=== PATIENT | female | born 1945 | race Caucasian/White ===

== ENCOUNTER 2016-08-13 08:08 | Outpatient (CLI) | payer MEDICARE, OTHER ==
[2016-08-13 11:25] LABS: ALBUMIN/GLOBULIN RATIO 2.2 (1.0-2.2); BILIRUBIN,TOTAL 0.6 mg/dL (0.2-1.0); BUN - BLOOD UREA NITROGEN 19 mg/dL (6-20); CALCIUM 9.5 mg/dL (8.5-10.3); CARBON DIOXIDE - CO2 27 mmol/L (21-32); CHLORIDE 94 mmol/L (101-111); CHOL/HDL RATIO 2.6 (<4.4); CHOLESTEROL 214 mg/dL; CREATININE 0.7 mg/dL (0.4-1.0); GFR - MDRD 83 (>89); GLUCOSE 87 mg/dL (70-100); HDL CHOLESTEROL 81 mg/dL; LDL/HDL RATIO 1.5 (<4.4); POTASSIUM 3.6 mmol/L (3.5-5.0); SODIUM 128 mmol/L (135-145); TOTAL PROTEIN 6.1 g/dL (6.7-8.2); TRIGLYCERIDES 55 mg/dL; VLDL CHOLESTEROL 11 mg/dL
[2016-08-17 11:03] LABS: 18 KD (IGG) BAND NON-REACTIVE (()); 23 KD (IGG) BAND REACTIVE (()); 28 KD (IGG) BAND NON-REACTIVE (()); 30 KD (IGG) BAND REACTIVE (()); 39 KD (IGG) BAND NON-REACTIVE (()); 41 KD (IGG) BAND NON-REACTIVE (()); 41 KD (IGM) BLOT NON-REACTIVE (()); 45 KD (IGG) BAND NON-REACTIVE (()); 58 KD (IGG) BAND NON-REACTIVE (()); 66 KD (IGG) BAND NON-REACTIVE (()); 93 KD (IGG) BAND NON-REACTIVE (())
[2016-08-19 16:26] LABS: GLIADIN (DEAMIDATED) AB IGA 6 U (<20); GLIADIN (DEAMIDATED) AB IGG 2 U (<20); IMMUNOGLOBULIN A 172 mg/dL (81-463); TISSUE TRANSGLUTAMINASE IGA <1 U/mL (()); TISSUE TRANSGLUTAMINASE IGG <1 U/mL (())
== END 2016-08-13 08:09 | disposition home or self-care (01) ==
LOC: LAB.F 08:08
PROVIDERS: ATTEND Family Medicine
DX: Z00.00 Encounter for general adult medical examination without abnormal findings (principal); E03.9 Hypothyroidism, unspecified; I10 Essential (primary) hypertension; R21 Rash and other nonspecific skin eruption
CPT/HCPCS: 36415; 80053; 80061; 82784; 83516; 84443; 86256; 86617

== ENCOUNTER 2017-03-09 10:59 | Outpatient (CLI) | payer MEDICARE, OTHER ==
[2017-03-09 17:32] LABS: BASOPHILS % (AUTO) 0.2 %; EOSINOPHILS % (AUTO) 0.5 %; HGB - HEMOGLOBIN 13.8 g/dL (12.0-16.0); LYMPHOCYTES # (AUTO) 0.7 10^3/uL (1.5-3.5); LYMPHOCYTES % (AUTO) 9.2 %; MEAN CORPUSCULAR HEMOGLOBIN 32.5 pg (27.0-31.0); MEAN CORPUSCULAR HGB CONC 34.3 g/dL (32.0-36.0); MEAN CORPUSCULAR VOLUME 94.5 fL (81.0-99.0); MEAN PLATELET VOLUME 7.9 fL (7.9-10.8); MONOCYTES # (AUTO) 0.9 10^3/uL (0.0-1.0); MONOCYTES % (AUTO) 12.1 %; PLT - PLATELET COUNT 295 10^3/uL (130-450); RED BLOOD COUNT 4.25 10^6/uL (4.20-5.40); RED CELL DISTRIBUTION WIDTH 13.3 % (12.0-15.0); WHITE BLOOD COUNT 7.7 x10^3/uL (4.8-10.8)
[2017-03-09 17:39] LABS: INR 0.9 (0.8-1.2); PT - PROTHROMBIN TIME 9.7 secs (9.9-12.6)
[2017-03-09 17:43] LABS: RHEUMATOID FACTOR NEGATIVE (Negative)
== END 2017-03-09 11:00 | disposition home or self-care (01) ==
LOC: LAB.F 10:59
PROVIDERS: ATTEND Naturopath
DX: I10 Essential (primary) hypertension (principal); R21 Rash and other nonspecific skin eruption; M20.091 Other deformity of right finger(s)
CPT/HCPCS: 36415; 85025; 85610; 85730; 86200; 86430

== ENCOUNTER 2017-06-01 11:02 | Outpatient (CLI) | payer MEDICARE, OTHER ==
[2017-06-01 17:58] LABS: CREATININE 0.7 mg/dL (0.4-1.0)
== END 2017-06-01 11:03 | disposition home or self-care (01) ==
LOC: LAB.F 11:02
PROVIDERS: ATTEND Naturopath
DX: E87.1 Hypo-osmolality and hyponatremia (principal)
CPT/HCPCS: 36415; 80048

== ENCOUNTER 2017-07-07 13:49 | Outpatient (CLI) | payer MEDICARE, OTHER | END 2017-07-07 13:50 | disposition home or self-care (01) | LOC: RT 13:49 | PROVIDERS: ATTEND Orthopaedic Surgery | DX: Z01.812 Encounter for preprocedural laboratory examination (principal); M87.9 Osteonecrosis, unspecified; Z01.818 Encounter for other preprocedural examination ==

== ENCOUNTER 2017-07-07 13:57 | Outpatient (CLI) | payer MEDICARE, OTHER ==
[2017-07-07 14:37] LABS: BASOPHILS % (AUTO) 0.2 %; EOSINOPHILS % (AUTO) 0.2 %; HGB - HEMOGLOBIN 13.7 g/dL (12.0-16.0); LYMPHOCYTES # (AUTO) 0.7 10^3/uL (1.5-3.5); MEAN CORPUSCULAR HEMOGLOBIN 32.7 pg (27.0-31.0); MEAN CORPUSCULAR HGB CONC 33.5 g/dL (32.0-36.0); MEAN CORPUSCULAR VOLUME 97.7 fL (81.0-99.0); MEAN PLATELET VOLUME 8.6 fL (7.9-10.8); MONOCYTES # (AUTO) 0.8 10^3/uL (0.0-1.0); MONOCYTES % (AUTO) 7.1 %; NEUTROPHILS # (AUTO) 10.2 10^3/uL (1.5-6.6); NEUTROPHILS % (AUTO) 86.5 %; PLT - PLATELET COUNT 236 10^3/uL (130-450); RED BLOOD COUNT 4.19 10^6/uL (4.20-5.40); RED CELL DISTRIBUTION WIDTH 14.7 % (12.0-15.0); WHITE BLOOD COUNT 11.8 x10^3/uL (4.8-10.8)
[2017-07-07 14:56] LABS: CALCIUM 9.3 mg/dL (8.5-10.3); CREATININE 0.7 mg/dL (0.4-1.0)
== END 2017-07-07 13:58 | disposition home or self-care (01) ==
LOC: LAB 13:57
PROVIDERS: ATTEND Orthopaedic Surgery
DX: Z01.818 Encounter for other preprocedural examination (principal); M87.9 Osteonecrosis, unspecified
CPT/HCPCS: 36415; 80048; 85025; 93005

== ENCOUNTER 2017-09-08 14:43 | Outpatient (CLI) | payer MEDICARE, OTHER ==
[2017-09-08 17:46] LABS: CREATININE 0.8 mg/dL (0.4-1.0)
[2017-09-08 17:48] LABS: CALCIUM 9.1 mg/dL (8.5-10.3)
== END 2017-09-08 14:44 | disposition home or self-care (01) ==
LOC: LAB.F 14:43
PROVIDERS: ATTEND Internal Medicine Cardiovascular Disease
DX: I47.1 Supraventricular tachycardia (principal)
CPT/HCPCS: 36415; 80048

== ENCOUNTER 2018-07-15 11:21 | Outpatient (CLI) | payer MEDICARE, OTHER ==
[2018-07-15 17:27] LABS: CALCIUM 9.3 mg/dL (8.5-10.3); CREATININE 0.9 mg/dL (0.4-1.0)
== END 2018-07-15 11:22 | disposition home or self-care (01) ==
LOC: LAB.F 11:21
PROVIDERS: ATTEND Hospitalist
DX: I10 Essential (primary) hypertension (principal)
CPT/HCPCS: 36415; 80048

== ENCOUNTER 2019-03-08 15:00 | Outpatient (CLI) | payer MEDICARE, OTHER | END 2019-03-08 23:59 | disposition EMS.NT | LOC: EMS 15:00 | PROVIDERS: ATTEND Surgery | DX: M54.5 Low back pain (principal); V48.5XXA Car driver injured in noncollision transport accident in traffic accident, initial encounter; Y92.414 Local residential or business street as the place of occurrence of the external cause ==

== ENCOUNTER 2020-03-01 12:04 | Outpatient (CLI) | payer MEDICARE, OTHER ==
[2020-03-01 14:54] LABS: BASOPHILS % (AUTO) 0.4 %; EOSINOPHILS % (AUTO) 0.6 %; HGB - HEMOGLOBIN 12.9 g/dL (12.0-16.0); LYMPHOCYTES # (AUTO) 0.8 10^3/uL (1.5-3.5); LYMPHOCYTES % (AUTO) 11.6 %; MEAN CORPUSCULAR HEMOGLOBIN 32.8 pg (27.0-31.0); MEAN CORPUSCULAR HGB CONC 31.2 g/dL (32.0-36.0); MEAN CORPUSCULAR VOLUME 105.1 fL (81.0-99.0); MEAN PLATELET VOLUME 10.6 fL (7.9-10.8); MONOCYTES # (AUTO) 0.8 10^3/uL (0.0-1.0); MONOCYTES % (AUTO) 11.9 %; NEUTROPHILS # (AUTO) 5.1 10^3/uL (1.5-6.6); NEUTROPHILS % (AUTO) 74.8 %; PLT - PLATELET COUNT 244 10^3/uL (130-450); RED BLOOD COUNT 3.93 10^6/uL (4.20-5.40); RED CELL DISTRIBUTION WIDTH 14.9 % (12.0-15.0); WHITE BLOOD COUNT 6.8 x10^3/uL (4.8-10.8)
[2020-03-01 15:54] LABS: ALBUMIN 3.9 g/dL (3.2-5.5); ALBUMIN/GLOBULIN RATIO 1.4 (1.0-2.2); ALKALINE PHOSPHATASE 85 IU/L (42-121); ALT ALANINE AMINOTRANSFERASE 18 IU/L (10-60); AST ASPARTATE AMINOTRANSFERASE 22 IU/L (10-42); BILIRUBIN,TOTAL 0.6 mg/dL (0.2-1.0); BUN - BLOOD UREA NITROGEN 28 mg/dL (6-20); CALCIUM 9.8 mg/dL (8.5-10.3); CARBON DIOXIDE - CO2 27 mmol/L (21-32); CHLORIDE 103 mmol/L (101-111); CREATININE 0.9 mg/dL (0.4-1.0); GLUCOSE 82 mg/dL (70-100); SODIUM 140 mmol/L (135-145); TOTAL PROTEIN 6.7 g/dL (6.7-8.2)
[2020-03-01 15:58] LABS: CRP - C-REACTIVE PROTEIN < 1.0 mg/dL (0-1.0)
--- OUTSIDE RECORDS SUMMARY | 2020-03-06 01:37 | EXTERNAL MEDICAL SUMMARY RPT | Continuity of Care Document ---
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
== END 2020-03-01 12:05 | disposition home or self-care (01) ==
LOC: LAB.S 12:04
PROVIDERS: ATTEND Internal Medicine Rheumatology
DX: Z79.899 Other long term (current) drug therapy (principal)
CPT/HCPCS: 36415; 80053; 85025; 86140

== ENCOUNTER 2020-07-16 10:26 | Outpatient (CLI) | payer MEDICARE, OTHER ==
[2020-07-16 15:22] LABS: ALBUMIN 3.8 g/dL (3.2-5.5); ALBUMIN/GLOBULIN RATIO 1.5 (1.0-2.2); ALKALINE PHOSPHATASE 73 IU/L (42-121); ALT ALANINE AMINOTRANSFERASE 18 IU/L (10-60); AST ASPARTATE AMINOTRANSFERASE 20 IU/L (10-42); BILIRUBIN,TOTAL 0.9 mg/dL (0.2-1.0); BUN - BLOOD UREA NITROGEN 33 mg/dL (6-20); CALCIUM 9.5 mg/dL (8.5-10.3); CARBON DIOXIDE - CO2 27 mmol/L (21-32); CHLORIDE 101 mmol/L (101-111); CHOL/HDL RATIO 3.5 (<4.4); CHOLESTEROL 236 mg/dL; CREATININE 1.1 mg/dL (0.4-1.0); GFR - MDRD 49 (>89); GLUCOSE 86 mg/dL (70-100); HDL CHOLESTEROL 67 mg/dL; LDL CHOLESTEROL,CALCULATED 154 mg/dL; LDL/HDL RATIO 2.3 (<4.4); POTASSIUM 4.2 mmol/L (3.5-5.0); SODIUM 139 mmol/L (135-145); TOTAL PROTEIN 6.3 g/dL (6.7-8.2); TRIGLYCERIDES 76 mg/dL; VLDL CHOLESTEROL 15 mg/dL
== END 2020-07-16 10:27 | disposition home or self-care (01) ==
LOC: LAB.S 10:26
PROVIDERS: ATTEND Internal Medicine Cardiovascular Disease
DX: I35.1 Nonrheumatic aortic (valve) insufficiency (principal); I10 Essential (primary) hypertension; R00.0 Tachycardia, unspecified
CPT/HCPCS: 36415; 80053; 80061; 83721; 84443

== ENCOUNTER 2020-12-02 09:56 | Outpatient (CLI) | payer MEDICARE, OTHER ==
[2020-12-02 15:36] LABS: CHOL/HDL RATIO 3.1 (<4.4); CHOLESTEROL 238 mg/dL; HDL CHOLESTEROL 77 mg/dL; LDL CHOLESTEROL,CALCULATED 147 mg/dL; LDL/HDL RATIO 1.9 (<4.4); TRIGLYCERIDES 69 mg/dL; VLDL CHOLESTEROL 14 mg/dL
== END 2020-12-02 09:57 | disposition home or self-care (01) ==
LOC: LAB.S 09:56
PROVIDERS: ATTEND Internal Medicine Cardiovascular Disease
DX: I10 Essential (primary) hypertension (principal)
CPT/HCPCS: 36415; 80061; 83721

== ENCOUNTER 2021-05-30 10:23 | Outpatient (CLI) | payer MEDICARE, OTHER ==
[2021-05-30 15:31] LABS: CHOL/HDL RATIO 2.3 (<4.4); CHOLESTEROL 168 mg/dL; HDL CHOLESTEROL 74 mg/dL; LDL CHOLESTEROL,CALCULATED 84 mg/dL; LDL/HDL RATIO 1.1 (<4.4); TRIGLYCERIDES 52 mg/dL; VLDL CHOLESTEROL 10 mg/dL
== END 2021-05-30 10:24 | disposition home or self-care (01) ==
LOC: LAB.S 10:23
PROVIDERS: ATTEND Internal Medicine Cardiovascular Disease
DX: E78.5 Hyperlipidemia, unspecified (principal)
CPT/HCPCS: 36415; 80061; 83721

== ENCOUNTER 2021-06-19 08:00 | Outpatient (CLI) | payer MEDICARE, OTHER ==
[2021-06-19 20:44] LABS: BASOPHILS % (AUTO) 0.3 %; EOSINOPHILS # (AUTO) 0.1 10^3/uL (0.0-0.7); EOSINOPHILS % (AUTO) 0.6 %; HCT - HEMATOCRIT 43.5 % (37.0-47.0); HGB - HEMOGLOBIN 14.1 g/dL (12.0-16.0); LYMPHOCYTES # (AUTO) 0.8 10^3/uL (1.5-3.5); LYMPHOCYTES % (AUTO) 8.1 %; MEAN CORPUSCULAR HEMOGLOBIN 34.8 pg (27.0-31.0); MEAN CORPUSCULAR HGB CONC 32.4 g/dL (32.0-36.0); MEAN CORPUSCULAR VOLUME 107.4 fL (81.0-99.0); MEAN PLATELET VOLUME 11.2 fL (7.9-10.8); MONOCYTES # (AUTO) 0.8 10^3/uL (0.0-1.0); MONOCYTES % (AUTO) 8.2 %; NEUTROPHILS # (AUTO) 7.9 10^3/uL (1.5-6.6); NEUTROPHILS % (AUTO) 82.2 %; PLT - PLATELET COUNT 285 10^3/uL (130-450); RED BLOOD COUNT 4.05 10^6/uL (4.20-5.40); RED CELL DISTRIBUTION WIDTH 14.6 % (12.0-15.0); WHITE BLOOD COUNT 9.6 x10^3/uL (4.8-10.8)
[2021-06-19 20:56] LABS: ALBUMIN/GLOBULIN RATIO 1.5 (1.0-2.2); ALKALINE PHOSPHATASE 44 IU/L (42-121); ALT ALANINE AMINOTRANSFERASE 21 IU/L (10-60); AST ASPARTATE AMINOTRANSFERASE 28 IU/L (10-42); BILIRUBIN,TOTAL 0.9 mg/dL (0.2-1.0); BUN - BLOOD UREA NITROGEN 33 mg/dL (6-20); CALCIUM 9.8 mg/dL (8.5-10.3); CARBON DIOXIDE - CO2 30 mmol/L (21-32); CHLORIDE 100 mmol/L (101-111); GFR - MDRD 54 (>89); GLUCOSE 121 mg/dL (70-100); POTASSIUM 3.9 mmol/L (3.5-5.0); SODIUM 139 mmol/L (135-145); TOTAL PROTEIN 6.6 g/dL (6.7-8.2)
[2021-06-19 21:05] LABS: CRP - C-REACTIVE PROTEIN < 1.0 mg/dL (0-1.0)
== END 2021-06-19 08:01 | disposition home or self-care (01) ==
LOC: LAB.S 08:00
PROVIDERS: ATTEND Internal Medicine Rheumatology
DX: M13.80 Other specified arthritis, unspecified site (principal); Z79.899 Other long term (current) drug therapy
CPT/HCPCS: 36415; 80053; 85025; 86140

== ENCOUNTER 2021-12-02 14:53 | Outpatient (CLI) | payer MEDICARE, OTHER ==
[2021-12-02 15:08] LABS: BASOPHILS % (AUTO) 0.4 %; EOSINOPHILS # (AUTO) 0.1 10^3/uL (0.0-0.7); EOSINOPHILS % (AUTO) 0.5 %; HCT - HEMATOCRIT 43.2 % (37.0-47.0); HGB - HEMOGLOBIN 14.2 g/dL (12.0-16.0); LYMPHOCYTES % (AUTO) 9.3 %; MEAN CORPUSCULAR HGB CONC 32.9 g/dL (32.0-36.0); MEAN CORPUSCULAR VOLUME 106.4 fL (81.0-99.0); MEAN PLATELET VOLUME 9.9 fL (7.9-10.8); MONOCYTES % (AUTO) 9.8 %; NEUTROPHILS # (AUTO) 8.2 10^3/uL (1.5-6.6); NEUTROPHILS % (AUTO) 79.3 %; PLT - PLATELET COUNT 258 10^3/uL (130-450); RED BLOOD COUNT 4.06 10^6/uL (4.20-5.40); RED CELL DISTRIBUTION WIDTH 14.5 % (12.0-15.0); WHITE BLOOD COUNT 10.3 x10^3/uL (4.8-10.8)
[2021-12-02 15:25] LABS: ALBUMIN 3.9 g/dL (3.2-5.5); ALBUMIN/GLOBULIN RATIO 1.4 (1.0-2.2); CALCIUM 9.6 mg/dL (8.5-10.3); CREATININE 1.1 mg/dL (0.4-1.0); POTASSIUM 4.2 mmol/L (3.5-5.0); TOTAL PROTEIN 6.7 g/dL (6.7-8.2)
== END 2021-12-02 14:54 | disposition home or self-care (01) ==
LOC: LAB 14:53
PROVIDERS: ATTEND Internal Medicine Rheumatology
DX: M13.80 Other specified arthritis, unspecified site (principal); Z79.899 Other long term (current) drug therapy
CPT/HCPCS: 36415; 80053; 85025

== ENCOUNTER 2021-12-15 12:48 | Outpatient (CLI) | payer MEDICARE, OTHER ==
[2021-12-15 13:07] LABS: HCT - HEMATOCRIT 43.6 % (37.0-47.0); HGB - HEMOGLOBIN 14.1 g/dL (12.0-16.0); MEAN CORPUSCULAR HEMOGLOBIN 34.5 pg (27.0-31.0); MEAN CORPUSCULAR HGB CONC 32.3 g/dL (32.0-36.0); MEAN CORPUSCULAR VOLUME 106.6 fL (81.0-99.0); MEAN PLATELET VOLUME 10.1 fL (7.9-10.8); RED BLOOD COUNT 4.09 10^6/uL (4.20-5.40); RED CELL DISTRIBUTION WIDTH 14.5 % (12.0-15.0); WHITE BLOOD COUNT 9.2 x10^3/uL (4.8-10.8)
[2021-12-15 13:26] LABS: CREATININE,URINE 31.8 mg/dL; MICROALBUM/CREATININE RATIO,UR 9.4 ug/mg (<30.0); MICROALBUMIN,URINE 0.3 mg/dL (0-300.0)
[2021-12-15 13:31] LABS: ALBUMIN 4.1 g/dL (3.2-5.5); ALBUMIN/GLOBULIN RATIO 1.5 (1.0-2.2); ALKALINE PHOSPHATASE 44 IU/L (42-121); ALT ALANINE AMINOTRANSFERASE 19 IU/L (10-60); AST ASPARTATE AMINOTRANSFERASE 23 IU/L (10-42); BUN - BLOOD UREA NITROGEN 27 mg/dL (6-20); CALCIUM 10.1 mg/dL (8.5-10.3); CARBON DIOXIDE - CO2 28 mmol/L (21-32); CHLORIDE 102 mmol/L (101-111); CHOL/HDL RATIO 2.4 (<4.4); CHOLESTEROL 187 mg/dL; CREATININE 1.1 mg/dL (0.4-1.0); GFR - MDRD 49 (>89); GLUCOSE 104 mg/dL (70-100); HDL CHOLESTEROL 78 mg/dL; LDL CHOLESTEROL,CALCULATED 90 mg/dL; LDL/HDL RATIO 1.2 (<4.4); SODIUM 141 mmol/L (135-145); TOTAL PROTEIN 6.8 g/dL (6.7-8.2); TRIGLYCERIDES 93 mg/dL; VLDL CHOLESTEROL 19 mg/dL
[2021-12-15 13:38] LABS: FREE T3 2.87 pg/mL (2.5-3.9)
[2021-12-15 13:40] LABS: THYROID STIMULATING HORMONE 2.75 uIU/mL (0.34-5.60)
[2021-12-15 13:42] LABS: FREE T4 (FREE THYROXINE) 0.77 ng/dL (0.58-1.64)
== END 2021-12-15 12:49 | disposition home or self-care (01) ==
LOC: LAB 12:48
DX: I10 Essential (primary) hypertension (principal); E03.9 Hypothyroidism, unspecified; I77.810 Thoracic aortic ectasia
CPT/HCPCS: 36415; 80053; 80061; 82043; 82570; 83721; 84439; 84443; 84481; 85027

== ENCOUNTER 2022-05-21 16:21 | Outpatient (CLI) | payer MEDICARE, OTHER ==
[2022-05-21 16:47] LABS: BASOPHILS % (AUTO) 0.4 %; EOSINOPHILS # (AUTO) 0.1 10^3/uL (0.0-0.7); EOSINOPHILS % (AUTO) 0.5 %; HCT - HEMATOCRIT 42.9 % (37.0-47.0); HGB - HEMOGLOBIN 13.6 g/dL (12.0-16.0); LYMPHOCYTES # (AUTO) 0.9 10^3/uL (1.5-3.5); LYMPHOCYTES % (AUTO) 9.6 %; MEAN CORPUSCULAR HEMOGLOBIN 32.4 pg (27.0-31.0); MEAN CORPUSCULAR HGB CONC 31.7 g/dL (32.0-36.0); MEAN CORPUSCULAR VOLUME 102.1 fL (81.0-99.0); MEAN PLATELET VOLUME 10.2 fL (7.9-10.8); MONOCYTES # (AUTO) 0.8 10^3/uL (0.0-1.0); MONOCYTES % (AUTO) 8.6 %; NEUTROPHILS # (AUTO) 7.5 10^3/uL (1.5-6.6); NEUTROPHILS % (AUTO) 80.4 %; PLT - PLATELET COUNT 232 10^3/uL (130-450); RED CELL DISTRIBUTION WIDTH 16.6 % (12.0-15.0); WHITE BLOOD COUNT 9.4 x10^3/uL (4.8-10.8)
[2022-05-21 16:59] LABS: ALBUMIN 3.9 g/dL (3.2-5.5); ALBUMIN/GLOBULIN RATIO 1.4 (1.0-2.2); BILIRUBIN,TOTAL 0.9 mg/dL (0.2-1.0); CALCIUM 9.3 mg/dL (8.5-10.3); CREATININE 0.8 mg/dL (0.4-1.0); TOTAL PROTEIN 6.6 g/dL (6.7-8.2)
== END 2022-05-21 16:22 | disposition home or self-care (01) ==
LOC: LAB 16:21
PROVIDERS: ATTEND Internal Medicine Rheumatology
DX: M13.80 Other specified arthritis, unspecified site (principal); Z79.899 Other long term (current) drug therapy
CPT/HCPCS: 36415; 80053; 85025

== ENCOUNTER 2022-11-24 11:52 | Outpatient (CLI) | payer MEDICARE, OTHER ==
[2022-11-24 12:11] LABS: BASOPHILS % (AUTO) 0.5 %; EOSINOPHILS # (AUTO) 0.1 10^3/uL (0.0-0.7); EOSINOPHILS % (AUTO) 0.8 %; HCT - HEMATOCRIT 44.9 % (37.0-47.0); HGB - HEMOGLOBIN 14.3 g/dL (12.0-16.0); LYMPHOCYTES % (AUTO) 13.2 %; MEAN CORPUSCULAR HEMOGLOBIN 33.3 pg (27.0-31.0); MEAN CORPUSCULAR HGB CONC 31.8 g/dL (32.0-36.0); MEAN CORPUSCULAR VOLUME 104.7 fL (81.0-99.0); MEAN PLATELET VOLUME 10.4 fL (7.9-10.8); MONOCYTES # (AUTO) 0.7 10^3/uL (0.0-1.0); MONOCYTES % (AUTO) 9.2 %; NEUTROPHILS # (AUTO) 5.8 10^3/uL (1.5-6.6); NEUTROPHILS % (AUTO) 75.8 %; PLT - PLATELET COUNT 241 10^3/uL (130-450); RED BLOOD COUNT 4.29 10^6/uL (4.20-5.40); RED CELL DISTRIBUTION WIDTH 15.2 % (12.0-15.0); WHITE BLOOD COUNT 7.6 x10^3/uL (4.8-10.8)
[2022-11-24 12:19] LABS: ALBUMIN 4.3 g/dL (3.2-5.5); CHOL/HDL RATIO 2.3 (<4.4); CHOLESTEROL 165 mg/dL; HDL CHOLESTEROL 72 mg/dL; LDL CHOLESTEROL,CALCULATED 79 mg/dL; LDL/HDL RATIO 1.1 (<4.4); TRIGLYCERIDES 71 mg/dL (48-352); VLDL CHOLESTEROL 14 mg/dL
[2022-11-24 12:56] LABS: ALBUMIN/GLOBULIN RATIO 1.8 (1.0-2.2); ALKALINE PHOSPHATASE 57 IU/L (42-121); ALT ALANINE AMINOTRANSFERASE 17 IU/L (10-60); AST ASPARTATE AMINOTRANSFERASE 25 IU/L (10-42); BILIRUBIN,TOTAL 0.7 mg/dL (0.2-1.0); BUN - BLOOD UREA NITROGEN 19 mg/dL (6-20); CALCIUM 9.7 mg/dL (8.5-10.3); CARBON DIOXIDE - CO2 27 mmol/L (21-32); CHLORIDE 106 mmol/L (101-111); CREATININE 0.9 mg/dL (0.6-1.3); GFR - MDRD 61 (>89); GLUCOSE 89 mg/dL (74-104); POTASSIUM 4.7 mmol/L (3.5-4.5); SODIUM 138 mmol/L (135-145); TOTAL PROTEIN 6.7 g/dL (6.4-8.9)
== END 2022-11-24 11:53 | disposition home or self-care (01) ==
LOC: LAB 11:52
PROVIDERS: ATTEND Family Medicine
DX: I77.810 Thoracic aortic ectasia (principal); E03.9 Hypothyroidism, unspecified; I10 Essential (primary) hypertension
CPT/HCPCS: 36415; 80053; 80061; 83721; 84439; 84443; 84481; 85025

== ENCOUNTER 2023-06-17 12:55 | Outpatient (CLI) | payer MEDICARE, OTHER ==
[2023-06-17 13:21] LABS: ALBUMIN 4.5 g/dL (3.2-5.5); BILIRUBIN,TOTAL 0.7 mg/dL (0.2-1.0); CALCIUM 10.7 mg/dL (8.5-10.3); CREATININE 1.1 mg/dL (0.6-1.3); POTASSIUM 4.5 mmol/L (3.5-4.5); TOTAL PROTEIN 6.8 g/dL (6.4-8.9)
[2023-06-17 13:22] LABS: BASOPHILS % (AUTO) 0.3 %; EOSINOPHILS # (AUTO) 0.1 10^3/uL (0.0-0.7); EOSINOPHILS % (AUTO) 0.7 %; HCT - HEMATOCRIT 45.6 % (37.0-47.0); HGB - HEMOGLOBIN 13.8 g/dL (12.0-16.0); LYMPHOCYTES % (AUTO) 10.1 %; MEAN CORPUSCULAR HEMOGLOBIN 31.3 pg (27.0-31.0); MEAN CORPUSCULAR HGB CONC 30.3 g/dL (32.0-36.0); MEAN CORPUSCULAR VOLUME 103.4 fL (81.0-99.0); MEAN PLATELET VOLUME 10.5 fL (7.9-10.8); MONOCYTES # (AUTO) 0.8 10^3/uL (0.0-1.0); MONOCYTES % (AUTO) 7.7 %; NEUTROPHILS % (AUTO) 80.6 %; PLT - PLATELET COUNT 275 10^3/uL (130-450); RED BLOOD COUNT 4.41 10^6/uL (4.20-5.40); RED CELL DISTRIBUTION WIDTH 14.7 % (12.0-15.0)
== END 2023-06-17 12:56 | disposition home or self-care (01) ==
LOC: LAB 12:55
PROVIDERS: ATTEND Internal Medicine Rheumatology
DX: M13.80 Other specified arthritis, unspecified site (principal); Z79.899 Other long term (current) drug therapy
CPT/HCPCS: 36415; 80053; 85025

== ENCOUNTER 2023-07-27 16:00 | Outpatient (CLI) | payer MEDICARE, OTHER | END 2023-07-27 23:59 | disposition critical access hospital (66) | LOC: EMS 16:00 | DX: M25.511 Pain in right shoulder (principal); W01.0XXA Fall on same level from slipping, tripping and stumbling without subsequent striking against object, initial encounter; Y92.009 Unspecified place in unspecified non-institutional (private) residence as the place of occurrence of the external cause | CPT/HCPCS: A0425; A0427 ==

== ENCOUNTER 2023-07-27 16:32 | Emergency (ER) | payer MEDICARE, OTHER ==
--- NOTE | 2023-07-27 17:30 | ED Physician Documentation ---
PD HPI UPPER EXT INJURY - Stated complaint Stated Complaint: FALL - Chief complaint Chief Complaint: Trauma Ext - History obtained from History obtained from: Patient - History of Present Illness Location: Right, Shoulder, Elbow Type of injury: Fall (accidental trip and fall. 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 No: Numbness Contributing factors: No: Anticoagulated Similar symptoms before: Has not had sx before Review of Systems Cardiac: denies: Chest pain / pressure, Palpitations Respiratory: denies: Dyspnea, Cough GI: denies: Abdominal Pain Neurologic: denies: Focal weakness, Numbness, Syncope, Headache, Head injury PD PAST MEDICAL HISTORY - Past Medical History Cardiovascular: Hypertension, Other (denies history of atrial fib nor ACS) Endocrine/Autoimmune: HyPOthyroidism Musculoskeletal: Gout - Past Surgical History Past Surgical History: No - Allergies Allergies/Adverse Reactions: Allergies Allergy/AdvReac Type Severity Reaction Status Date / Time No Known Drug Allergies Allergy Verified 07/27/23 17:01 - Social History Does the pt smoke?: No Smoking Status: Never smoker Does the pt drink ETOH?: No Does the pt have substance abuse?: No PD ED PE NORMAL - Vitals Vital signs reviewed: Yes - General General: Alert and oriented X 3, Well developed/nourished, Other (supine on cart with bandage sling by EMS. Pain in right shoulder with any slight ROM>) - Cardiac Cardiac: No murmur. No: RRR (initially is regularly irregular with EMS rhythm strips showing atrial bigeminy. ) - Respiratory Respiratory: No respiratory distress, Clear bilaterally, Other (no chest wall tenderness. ) - Abdomen Abdomen: Soft, Non tender - Derm Derm: Normal color, Warm and dry - Extremities Extremities: No edema, Other (pain and tender right shoulder with sulcus sign c/w likely dislocation. Pain at proximal huerus too. Elbow tnder without effusion. Dorsl wrist with mild tenderness ) - Neuro Neuro: Alert and oriented X 3, No motor deficit, No sensory deficit Eye Opening: Spontaneous Motor: Obeys Commands Verbal: Oriented GCS Score: 15 Results - Vitals Vitals: Vital Signs - 24 hr 07/27/23 07/27/23 07/27/23 16:53 17:14 19:30 Temperature 36.6 C Heart Rate 66 66 153 H Respiratory 20 23 22 Rate Blood Pressure 196/77 H 191/79 H 189/97 H O2 Saturation 88 L 97 93 If not protocol 3 : Oxygen Flow, liters/minute 07/27/23 07/27/23 07/27/23 20:00 20:59 22:00 Temperature Heart Rate 160 H 70 61 Respiratory 22 20 18 Rate Blood Pressure 136/86 H 184/92 H 159/81 H O2 Saturation 92 95 94 If not protocol 2 2 2 : Oxygen Flow, liters/minute Oxygen O2 Source Nasal cannula - Labs Labs: Laboratory Tests 07/27/23 07/27/23 07/27/23 19:09 19:09 21:45 WBC 14.2 H RBC 3.98 L Hgb 12.8 Hct 40.0 MCV 100.5 H MCH 32.2 H MCHC 32.0 RDW 17.3 H Plt Count 250 MPV 9.9 Neut # (Auto) 12.1 H Lymph # (Auto) 0.8 L Sublette # (Auto) 1.1 H Eos # (Auto) 0.0 Baso # (Auto) 0.0 Absolute Nucleated RBC 0.00 Nucleated RBC % 0.0 Sodium 138 Potassium 3.6 Chloride 104 Carbon Dioxide 24 Anion Gap 10.0 BUN 22 H Creatinine 0.8 Estimated GFR (MDRD) 70 L Glucose 105 H Calcium 9.6 Magnesium 1.9 Total Bilirubin 0.9 AST 24 ALT 40 Alkaline Phosphatase 44 Total Protein 6.6 Albumin 4.1 Globulin 2.5 Albumin/Globulin Ratio 1.6 Lipase 27 Nasal Adenovirus (PCR) NOT DETECTED Nasal B. parapertussis DNA (PCR) NOT DETECTED Nasal Coronavir 229E PCR NOT DETECTED Nasal Coronavir HKU1 PCR NOT DETECTED Nasal Coronavir NL63 PCR NOT DETECTED Nasal Coronavir OC43 PCR NOT DETECTED Nasal Enterovir/Rhinovir PCR NOT DETECTED Nasal Influenza B PCR NOT DETECTED Nasal Influenza A PCR NOT DETECTED Nasal Parainfluen 1 PCR NOT DETECTED Nasal Parainfluen 2 PCR NOT DETECTED Nasal Parainfluen 3 PCR NOT DETECTED Nasal Parainfluen 4 PCR NOT DETECTED Nasal RSV (PCR) NOT DETECTED Nasal B.pertussis DNA PCR NOT DETECTED Nasal C.pneumoniae (PCR) NOT DETECTED Johnathan Human Metapneumo PCR NOT DETECTED Nasal M.pneumoniae (PCR) NOT DETECTED Nasal SARS-CoV-2 (PCR) NOT DETECTED PD Medical Decision Making - ED course Complexity details: considered differential, d/w patient, d/w lead consultant (Dr. Kruse and on-call for orthopedist who said we could try traction countertraction to see if it would reduce but otherwise would need surgical intervention which would be beyond our level here.) ED course: The patient was having significant pain in the shoulder as well as the wrist and elbow. We did x-rays of those. The shoulder x-ray showing fracture dislocation of the ball of the humerus. I talked with orthopedics who said sometimes they will reduce by traction. As I was considering that and to talk with the patient about sedation and attempted reduction, it was noted that she did go into rapid atrial fibrillation. Her EMS rhythm strip and EKG showed like an atrial bigeminy but did not look fibrillation. She is not familiar with being in atrial fibrillation. This therefore it appears to be new onset and is rapid rate. She was given fluid bolus as well as pain medicine for the shoulder and diltiazem 15 mg IV. This brought her rate down to approximately 100. Her pain seems improved reasonably with couple of doses of Dilaudid IV as well as Torad ol. Known however at this point she has a new onset A-fib with rapid rate. I think this needs stabilizing before attempted reduction of her shoulder. The combination of the 2 may end up needing to be transferred to a higher level of care for both cardiac and a place that would be able to do the orthopedics. - Critical Care Comments: fracture dislocation with IV pain medds sequentially, trauma evaluation from fall mechanism, nw onset arial fib with RVR and IV diltiazem doses. Time Includes: Direct patient care, Reassess patient, Coordinate care, Medical consult Data interpretation: Labs, Pulse ox Procedures excluded from critical care time: EKG Departure - Departure Disposition: 02 Transfer Acute Care Hosp Clinical Impression: Fracture dislocation of shoulder joint, Atrial fibrillation with RVR Condition: Serious Forms: PCP List Discharge Date/Time: 07/28/23 00:01
[2023-07-27] MEDS: KETOROLAC 15 MG/ML VIAL IVP STA (17:51)
[2023-07-27] MEDS: SODIUM CHLORIDE 0.9% 1,000 ML IV STA (17:51)
[2023-07-27] MEDS: HYDROmorphone 1 MG/ML CARPUJECT IVP STA ×4 (17:51→23:44)
--- NOTE | 2023-07-27 19:03 | XRAY Report ---
PROCEDURE: Elbow 1-2V RT INDICATIONS: fall with elbow pain too TECHNIQUE 2 views of the elbow were acquired. COMPARISON: None. FINDINGS: Bones: No fractures or dislocations. No suspicious bony lesions. Soft tissues: No effusion. No suspicious soft tissue calcifications or masses. IMPRESSION: No acute bony abnormality or significant joint effusion. Reviewed by: Serena Ponce MD, PhD on 07/27/2023 7:01 PM PDT Approved by: Serena Ponce MD, PhD on 07/27/2023 7:01 PM PDT Station ID: [id number]
--- NOTE | 2023-07-27 19:05 | XRAY Report ---
PROCEDURE: Chest 1V INDICATIONS: fall, right ribs/chest pain TECHNIQUE: One view of the chest was acquired. COMPARISON: Right shoulder radiograph 07/27/2023. FINDINGS: Surgical changes and devices: None. Lungs and pleura: No pneumothorax. No significant pleural effusions. Prominent interstitial markings likely represent mild pulmonary edema. Mediastinum: Mediastinal contours appear normal. Heart size is enlarged. Bones and chest wall: Right proximal humeral head fracture. Overlying soft tissues appear unremarkab le. IMPRESSION: Cardiomegaly with probable mild pulmonary edema. Right proximal humeral head fracture. Please see dedicated right shoulder radiographs for additional details. Reviewed by: Serena Ponce MD, PhD on 07/27/2023 7:03 PM PDT Approved by: Serena Ponce MD, PhD on 07/27/2023 7:03 PM PDT Station ID: [id number]
--- NOTE | 2023-07-27 19:06 | XRAY Report ---
PROCEDURE: Shoulder 2+V RT INDICATIONS: fall with mainly shoulder pain TECHNIQUE: 3 views of the shoulder were acquired. COMPARISON: None. FINDINGS: Bones: Moderately displaced and anterior dislocated proximal humeral head comminuted fracture. Soft tissues: No suspicious soft tissue calcifications. The visualized lungs are within normal limi ts. IMPRESSION: Moderately displaced and anterior dislocated proximal humeral head fracture. Reviewed by: Serena Ponce MD, PhD on 07/27/2023 7:05 PM PDT Approved by: Serena Ponce MD, PhD on 07/27/2023 7:05 PM PDT Station ID: [id number]
--- NOTE | 2023-07-27 19:06 | XRAY Report ---
PROCEDURE: Wrist 1-2V RT INDICATIONS: fall with wrist tenderness, no deformity TECHNIQUE: 3 views of the wrist were acquired. COMPARISON: None. FINDINGS: Bones: No fractures or dislocations. No suspicious bony lesions. Soft tissues: No suspicious soft tissue calcifications or masses. IMPRESSION: No acute bony abnormality. Reviewed by: Serena Ponce MD, PhD on 07/27/2023 7:05 PM PDT Approved by: Serena Ponce MD, PhD on 07/27/2023 7:05 PM PDT Station ID: [id number]
[2023-07-27 19:12] LABS: BASOPHILS % (AUTO) 0.3 %; EOSINOPHILS % (AUTO) 0.1 %; HGB - HEMOGLOBIN 12.8 g/dL (12.0-16.0); LYMPHOCYTES # (AUTO) 0.8 10^3/uL (1.5-3.5); LYMPHOCYTES % (AUTO) 5.8 %; MEAN CORPUSCULAR HEMOGLOBIN 32.2 pg (27.0-31.0); MEAN CORPUSCULAR VOLUME 100.5 fL (81.0-99.0); MEAN PLATELET VOLUME 9.9 fL (7.9-10.8); MONOCYTES # (AUTO) 1.1 10^3/uL (0.0-1.0); NEUTROPHILS # (AUTO) 12.1 10^3/uL (1.5-6.6); NEUTROPHILS % (AUTO) 85.2 %; PLT - PLATELET COUNT 250 10^3/uL (130-450); RED BLOOD COUNT 3.98 10^6/uL (4.20-5.40); RED CELL DISTRIBUTION WIDTH 17.3 % (12.0-15.0); WHITE BLOOD COUNT 14.2 x10^3/uL (4.8-10.8)
[2023-07-27] MEDS ORDERED: diltiaZEM INJ 5 MG/ML VIAL ONE (19:22)
[2023-07-27] MEDS: diltiaZEM INJ 5 MG/ML VIAL IVP STA ×2 (19:24→20:00)
[2023-07-27 19:26] LABS: ALBUMIN 4.1 g/dL (3.2-5.5); ALBUMIN/GLOBULIN RATIO 1.6 (1.0-2.2); BILIRUBIN,TOTAL 0.9 mg/dL (0.2-1.0); CALCIUM 9.6 mg/dL (8.5-10.3); CREATININE 0.8 mg/dL (0.6-1.3); MAGNESIUM 1.9 mg/dL (1.7-2.3); POTASSIUM 3.6 mmol/L (3.5-4.5); TOTAL PROTEIN 6.6 g/dL (6.4-8.9)
[2023-07-27] MEDS: diltiaZEM CD 120 MG CAPSULE PO STA (20:55)
[2023-07-27 22:11] VITALS: BP 159/81; O2SAT 94
--- NOTE | 2023-07-27 23:05 | ED Physician Documentation ---
ED Addendum - Addendum Addendum: 07/27/23 22:56 The patient was signed out to me at change of shift, pending final disposition for fracture dislocation of right shoulder and also, response to treatment for atrial fibrillation with rapid ventricular response. In brief, the patient had presented to the emergency department with right shoulder pain after a mechanical fall in which she fell onto her right shoulder but did not injure her head or any other body part. She was neurovascularly intact but on x-ray found to have a Comminuted fracture dislocation of her right proximal humerus with the comminuted head of the glenoid. Complete dissociation of the shaft from the Humeral head was also noted. The patient had been given IV Cardizem and was rate controlled but still in A-fib and I did give her an oral dose of Cardizem, as well. She did subsequently spontaneously convert to normal sinus rhythm. The patient was given Dilaudid for pain control. The initial conversation with our orthopedist Dr. Mccracken by my colleague Dr. Wagner had indicated that perhaps we should try to maneuver the fracture dislocation back into place, and this task was signed out to me, due to the patient's ongoing atrial fib and uncertainty of response to treatment; however, after evaluating the x-ray I did not feel that this was something that ought to be done in the emergency department, even if the patient did achieve rate control or convert, and so I did pursue transfer instead. The case was reviewed by the orthopedist at [facility] who relayed to us through their transfer center that the fracture dislocation was too complicated to be done at [facility] and he recommended [facility]. I did speak with the [facility] transfer center who stated that the patient met criteria for auto-accept and following this, I spoke with Dr. Eder Garcia, the attending emergency physician, who did graciously accept the patient in transfer. Final impression: 1. Comminuted fracture dislocation of the right shoulder/humerus 2. New onset atrial fibrillation with rapid ventricular response Disposition: Transfer to [facility] emergency department in serious but stable condition.
[2023-07-27 23:15] LABS: B. PARAPERTUSSIS- RESP PCR PAN NOT DETECTED; B. PERTUSSIS- RESP PCR PANEL NOT DETECTED; C. PNEUMONIAE- RESP PCR PANEL NOT DETECTED; CORONAVIRUS 229E-RESP PCR NOT DETECTED; CORONAVIRUS HKU1-RESP PCR NOT DETECTED; CORONAVIRUS NL63-RESP PCR NOT DETECTED; CORONAVIRUS OC43-RESP PCR NOT DETECTED; HUMAN METAPNEUMOVIRUS NOT DETECTED; INFLUENZA A- RESP PCR PANEL NOT DETECTED; INFLUENZA B - RESP PCR PANEL NOT DETECTED; M. PNEUMONIAE- RESP PCR PANEL NOT DETECTED; PARAINFLUENZA VIRUS 1 NOT DETECTED; PARAINFLUENZA VIRUS 2 NOT DETECTED; PARAINFLUENZA VIRUS 3 NOT DETECTED; PARAINFLUENZA VIRUS 4 NOT DETECTED; RHINOVIRUS/ENTEROVIRUS NOT DETECTED; RSV- RESP PCR PANEL NOT DETECTED; SARS-CoV-2 -RESP PCR PANEL NOT DETECTED
[2023-07-27] MEDS: ONDANSETRON 4 MG/2 ML VIAL IVP STA (23:44)
== END 2023-07-28 00:01 | disposition short-term general hospital (02) ==
LOC: EDUNIT# → ED 16:32
DX: S42.291A Other displaced fracture of upper end of right humerus, initial encounter for closed fracture (principal); I48.91 Unspecified atrial fibrillation; W01.0XXA Fall on same level from slipping, tripping and stumbling without subsequent striking against object, initial encounter; Y92.009 Unspecified place in unspecified non-institutional (private) residence as the place of occurrence of the external cause
CPT/HCPCS: 36415; 71045; 73030; 73070; 73100; 80053; 83690; 83735; 85025; 87633; 93005; 96374; 96375; 96376; 99291; A9270; J1170

== ENCOUNTER 2023-07-28 00:02 | Outpatient (CLI) | payer MEDICARE, OTHER | END 2023-07-28 00:03 | disposition short-term general hospital (02) | LOC: EMS 00:02 | PROVIDERS: ATTEND Emergency Medicine | DX: S42.91XA Fracture of right shoulder girdle, part unspecified, initial encounter for closed fracture (principal); S43.004A Unspecified dislocation of right shoulder joint, initial encounter ==

== ENCOUNTER 2023-11-02 16:36 | Outpatient (CLI) | payer MEDICARE, OTHER ==
[2023-11-02 16:53] LABS: BASOPHILS % (AUTO) 0.3 %; EOSINOPHILS # (AUTO) 0.2 10^3/uL (0.0-0.7); EOSINOPHILS % (AUTO) 1.3 %; HCT - HEMATOCRIT 43.4 % (37.0-47.0); HGB - HEMOGLOBIN 13.4 g/dL (12.0-16.0); LYMPHOCYTES # (AUTO) 1.5 10^3/uL (1.5-3.5); LYMPHOCYTES % (AUTO) 12.4 %; MEAN CORPUSCULAR HEMOGLOBIN 30.6 pg (27.0-31.0); MEAN CORPUSCULAR HGB CONC 30.9 g/dL (32.0-36.0); MEAN CORPUSCULAR VOLUME 99.1 fL (81.0-99.0); MEAN PLATELET VOLUME 10.2 fL (7.9-10.8); MONOCYTES # (AUTO) 1.2 10^3/uL (0.0-1.0); MONOCYTES % (AUTO) 9.6 %; NEUTROPHILS # (AUTO) 9.1 10^3/uL (1.5-6.6); NEUTROPHILS % (AUTO) 75.6 %; PLT - PLATELET COUNT 272 10^3/uL (130-450); RED BLOOD COUNT 4.38 10^6/uL (4.20-5.40); RED CELL DISTRIBUTION WIDTH 14.6 % (12.0-15.0)
[2023-11-02 16:58] LABS: CALCIUM, IONIZED 1.23 mmol/L (1.15-1.33); VBG PH 7.366 (7.31-7.41)
[2023-11-02 17:21] LABS: ALBUMIN 4.3 g/dL (3.2-5.5); ALBUMIN/GLOBULIN RATIO 1.6 (1.0-2.2); BILIRUBIN,TOTAL 0.4 mg/dL (0.2-1.0); CALCIUM 10.2 mg/dL (8.5-10.3); CREATININE 0.9 mg/dL (0.6-1.3); POTASSIUM 4.4 mmol/L (3.5-4.5)
[2023-11-02 17:35] LABS: THYROID STIMULATING HORMONE 3.56 uIU/mL (0.34-5.60)
== END 2023-11-02 16:37 | disposition home or self-care (01) ==
LOC: LAB 16:36
PROVIDERS: ATTEND Internal Medicine
DX: M05.69 Rheumatoid arthritis of multiple sites with involvement of other organs and systems (principal); M12.9 Arthropathy, unspecified; M81.0 Age-related osteoporosis without current pathological fracture; E07.9 Disorder of thyroid, unspecified
CPT/HCPCS: 36415; 80053; 82306; 82330; 84439; 84443; 84481; 85025